=== PATIENT | female | born 1980 | race Caucasian/White ===

== ENCOUNTER 2016-12-13 22:23 | Emergency (ER) ==
[2016-12-13 22:35] VITALS: BP 114/74; TEMP 99; BMI 25.9
[2016-12-13] MEDS ORDERED: TORADOL IM STA (22:42)
[2016-12-13] MEDS ORDERED: SKELAXIN PO STA (22:42)
--- NOTE | 2016-12-13 22:46 | ED.PDOC ---
General ED Provider: Dr. EUGENIA CALHOUN Chief Complaint: Neck Pain Non-Injury Stated Complaint: Been hurting in the neck for 3 week, came for evaluation today , hurts to turn. Time Seen by Physician: 22:43 Mode of Arrival: Walk-In Information Source: Patient Nursing and Triage Documentation Reviewed and Agree: Yes Musculoskeletal Complaint Exam - Neck Pain Complaint/Exam Mechanism of Injury: Reports: No known trauma Symptoms Are: Still present Timing: Constant Episodes Lasting: Weeks Initial Severity: Moderate Current Severity: Moderate Location: Reports: Discrete Character: Reports: Aching, Throbbing Aggravating: Reports: Position, Movement, Medication Alleviating: Reports: None Associated Signs and Symptoms: Denies: Swelling, Redness, Bruising, Fever, Nuchal rigidity, Weakness, Headache, Paresthesia Meningitis Risk Factors: Reports: None Cervical Spine Injury Risk Factors: Reports: None Related Surgical History: Reports: None Carotid Bruit Present: No Pain on Passive Flexion: No Positive Kernig's Sign: No ROM Limited In: Present: Flexion, Extension, Right, Left Tenderness: Present: Paraspinal Focal Weakness: Present: None Focal Sensory Loss: Reports: None Differential Diagnoses: Sprain Review of Systems - Review Of Systems Constitutional: Reports: No symptoms Eyes: Reports: No symptoms Ears, Nose, Mouth, Throat: Reports: No symptoms Respiratory: Reports: No symptoms Cardiac: Reports: No symptoms GI: Reports: No symptoms : Reports: No symptoms Musculoskeletal: Reports: Back pain, Joint pain Skin: Reports: No symptoms Neurological: Reports: No symptoms Endocrine: Reports: No symptoms Hematologic/Lymphatic: Reports: No symptoms All Other Systems: Reviewed and Negative Past Medical History - Past Medical History Previously Healthy: Yes Endocrine: Reports: None Cardiovascular: Reports: None Respiratory: Reports: None Hematological: Reports: None Gastrointestinal: Reports: None Genitourinary: Reports: None Neuro/Psych: Reports: Migraine Musculoskeletal: Reports: None Cancer: Reports: None Last Menstrual Period: 25 days ago - Surgical History General Surgical History: Reports: None - Family History Family History: Reports: Unknown - Social History Smoking Status: Current every day smoker Hx Substance Use: No Alcohol Screening: Occasionally - Immunizations Tetanus Shot up to Date: Yes Physical Exam - Physical Exam Appearance: Ill-appearing Pain Distress: Moderate Eyes: SAMY, EOMI ENT: Ears normal, Nose normal, Oropharynx normal Respiratory: Airway patent, Breath sounds clear, Breath sounds equal, Respirations nonlabored Cardiovascular: RRR, Pulses normal, No rub, No murmur GI/: Soft, Nontender, No masses, Bowel sounds normal, No Organomegaly Musculoskeletal: Limited ROM Skin: Warm, Dry, Normal color Neurological: Sensation intact, Motor intact, Reflexes intact, Cranial nerves intact, Alert, Oriented Psychiatric: Affect appropriate, Mood appropriate Interpretation - Radiology Interpretation Radiology Interpretation By: Radiologist Radiology Results: Positive Exam Interpreted: CT Scan Critical Care Note - Critical Care Note Total Time (mins): 0 Course - Course Orders, Labs, Meds: Lab Review 12/13/16 22:50 Urine Test Negative Orders Category Date Time Status URINE Stat LAB 12/13/16 22:50 Completed Ketorolac Tromethamine [Toradol] MEDS 12/13/16 22:42 Discontinued 60 mg IM ONCE STA Metaxalone [Skelaxin] MEDS 12/13/16 22:42 Discontinued 800 mg PO ONCE STA CT CERVICAL SPINE W/O CONTRAST Stat RADS 12/13/16 22:42 Completed Medications Discontinued Medications Generic Name Dose Route Start Last Admin Trade Name Freq PRN Reason Stop Dose Admin Ketorolac Tromethamine 60 mg 12/13/16 22:42 12/13/16 23:07 Toradol IM 12/13/16 22:43 60 mg ONCE STA Administration Metaxalone 800 mg 12/13/16 22:42 12/13/16 23:07 Skelaxin PO 12/13/16 22:43 800 mg ONCE STA Administration Vital Signs: Temp Pulse Resp BP Pulse Ox 12/13/16 22:25 99 F 97 H 20 114/74 98 Departure - Departure Time of Disposition: 23:43 Disposition: HOME SELF-CARE Discharge Problem: Cervical strain Qualifiers: Encounter type: initial encounter Qualifier Code: (S16.1XXA) Strain of muscle, fascia and tendon at neck level, initial encounter Instructions: Cervical Sprain (ED) Condition: Stable Pt referred to PMD for follow-up: Yes Additional Instructions: rest needs f/u with [facility] if not better Prescriptions: Cyclobenzaprine HCl [Flexeril] 5 mg PO BID #14 tablet Prednisone 10 mg PO BIDWM #14 tablet Tramadol HCl 50 mg PO BID #14 tablet Allergies/Adverse Reactions: Allergies No Known Allergies Allergy (Verified 12/13/16 22:33) Home Medications: Ambulatory Orders Cyclobenzaprine HCl [Flexeril] 5 mg PO BID #14 tablet 12/13/16 Prednisone 10 mg PO BIDWM #14 tablet 12/13/16 Tramadol HCl 50 mg PO BID #14 tablet 12/13/16 Disposition Discussed With: Patient
[2016-12-13 23:06] LABS: URINE PREGNANCY INTERNAL QC INTERNAL QC VALID
--- NOTE | 2016-12-13 23:33 | CT ---
EXAM: CT scan cervical spine HISTORY: Pain COMPARISON: None. FINDINGS: Contiguous axial images obtained through the cervical spine utilizing 2-mm collimation. Sagittal and coronal reconstructions were imaged and reviewed. Mild levoscoliosis. Mild straighten ing the upper cervical spine suggesting paraspinal muscle spasm. The vertebral bodies are normal in height and alignment. Degenerate disc disease is noted at C5-C6. Segmental analysis: C2-C3: The central canal and foramen are patent. C3-C4: The central canal foramen are patent. C4-C5: Central canal and foramen are patent. C5-C6: Central canal and foramen are patent. C6-C7: Central canal and foramen are patent. C7-C1: The central canal and foramen are patent. IMPRESSION: Mild straightening of the cervical spine which may be related to paraspinal muscle spasm. Degenerate disc disease most prominent C5-C6. No acute findings.
== END 2016-12-13 23:45 | disposition home or self-care (01) ==
LOC: ED 22:23
DX: S16.1XXA Strain of muscle, fascia and tendon at neck level, initial encounter (principal); F17.210 Nicotine dependence, cigarettes, uncomplicated
CPT/HCPCS: 81025; 96372; 99282; 99283